=== PATIENT | male | born 1965 | race Caucasian/White ===

== ENCOUNTER 2025-01-19 15:38 | Emergency (ER) | payer BC, OTHER ==
[~2025-01-19] VITALS: Ht 182.9 cm; Wt 103.9 kg
[2025-01-19] MEDS: IV NS 0.9% 1,000 ML BAG IV ONE (15:59)
[2025-01-19 16:09] LABS: BASOPHILS % (AUTO) 0.3 % (0.0-2.0); EOSINOPHILS # (AUTO) 0.1 K/uL (0.0-0.7); EOSINOPHILS % (AUTO) 0.9 % (0.0-6.0); HEMATOCRIT 38 % (39-51); HEMOGLOBIN 12.6 g/dL (13.5-17.5); LYMPHOCYTES # (AUTO) 1.3 K/uL (0.8-4.8); LYMPHOCYTES % (AUTO) 18.6 % (20.0-44.0); MEAN CORPUSCULAR HEMOGLOBIN 28 PG (26.0-33.0); MEAN CORPUSCULAR HGB CONC 33 g/dl (31.0-36.0); MEAN CORPUSCULAR VOLUME 85 fL (80-96); MONOCYTES # (AUTO) 0.5 K/uL (0.1-1.30); MONOCYTES % (AUTO) 6.9 % (2.0-12.0); NEUTROPHILS # (AUTO) 4.9 K/uL (1.8-8.9); NEUTROPHILS % (AUTO) 73.3 % (43.0-81.0); PLATELET COUNT (AUTO) 208 K/uL (150-450); RED BLOOD CELL COUNT(AUTO) 4.46 MIL/uL (4.5-6.0); RED CELL DISTRIBUTION WIDTH 14.3 % (11.5-15.0); WHITE BLOOD COUNT (AUTO) 6.8 K/uL (4.3-11.0)
[2025-01-19 16:18] LABS: SITE, VBG VBG - N/A; VBG BASE EXCESS -0.4 mmol/L (-2.0-3.0); VBG COHb 0.2 % (0.5-1.5); VBG HCO3 24.4 mmol/L (22.0-29.0); VBG MetHb 0.3 % (0.5-1.5); VBG O2Hb 70.6 % (0-79); VBG PCO2 40.6 mmHg (38.0-54.0); VBG PH 7.396 (7.320-7.430); VBG TOTAL HEMOGLOBIN 13.1 G/dL (13.5-17.5)
[2025-01-19 16:18] LABS: CALCIUM, SERUM 8.9 mg/dL (8.5-10.1); CARBON DIOXIDE 26 mmol/L (21-32); CHLORIDE 104 mmol/L (98-107); CREATININE 0.7 mg/dL (0.6-1.3); POTASSIUM 3.1 mmol/L (3.5-5.1); SODIUM SERUM 139 mmol/L (136-145); UREA NITROGEN, BLOOD 7 mg/dL (7-18)
[2025-01-19 16:19] LABS: GLUCOSE 449 mg/dL (74-106)
[2025-01-19 16:25] LABS: ALANINE AMINOTRANSFERASE 59 U/L (12-78); ALBUMIN 2.8 g/dL (3.4-5.0); ALKALINE PHOSPHATASE 151 U/L (46-116); ASPARTATE AMINOTRANSFERASE 23 U/L (15-37); BILIRUBIN,DIRECT 0.2 mg/dL (0.0-0.2); BILIRUBIN,TOTAL 0.4 mg/dL (0.2-1.0)
[2025-01-19 16:26] LABS: LIPASE 23 U/L (16-77); TOTAL PROTEIN, SERUM 6.1 g/dL (6.4-8.2)
[2025-01-19] MEDS: INSULIN REGULAR, HUMAN 100 UNIT/ML 10 ML VIAL SQ ONE (17:08)
[2025-01-19 18:36] VITALS: BP 126/70; TEMP 98.1; O2SAT 98
== END 2025-01-19 18:37 | disposition home or self-care (01) ==
LOC: ER 15:38
DX: M54.50 Low back pain, unspecified (principal); R51.9 Headache, unspecified; I10 Essential (primary) hypertension; E11.9 Type 2 diabetes mellitus without complications; Z59.00 Homelessness unspecified; Z88.5 Allergy status to narcotic agent
CPT/HCPCS: 99285; 72125; 96360; 71045; 93005; 82803; 70450; 72131; 85025; 80048; 82010; 83690; 80076; 36415; 84484; 82962 ×2; J1815; J7030